=== PATIENT | male | born 1960 | race Caucasian/White ===

== ENCOUNTER 2016-12-08 17:15 | Inpatient (IN) | payer BC ==
[~2016-12-08] VITALS: Ht 182.9 cm; Wt 103.2 kg
--- NOTE | ~2016-12-08 | DS ---
PATIENT'S NAME: JEAN MCNULTY [facility] AGE: 56 Y [address] ROOM: [address] [address] LOCATION: GPCU ADMIT DATE: 12/08/2016 Discharge Summary DISCHARGE DATE: 12/11/2016 FAMILY PHYSICIAN: Tess Bruce APRN ATTENDING PHYSICIAN: Nadine Peralta DISCHARGE DIAGNOSES: 1. Unstable angina with the proximal LAD lesion, being the culprit lesion, which was stented using a drug-eluting stent. 2. History of coronary artery disease status post PCI in the past. 3. Hypertension. 4. Elevated lipids. 5. LVEDP of 20 at the time of intervention. DISCHARGE MEDICATIONS: 1. Amlodipine 5 mg once a day. 2. Ascorbic acid 1 g daily. 3. Aspirin 81 mg a day. 4. Cetirizine 10 mg twice a day. 5. Docusate sodium (famotidine) 20 mg twice a day. 6. Lasix 40 mg every morning. 7. Losartan 50 mg twice a day. 8. Reglan 5 mg before meals and at bedtime. 9. Metoprolol 25 mg twice a day. 10. Omeprazole 20 mg every day. 11. Tamsulosin 0.4 mg every day at bedtime. 12. Brilinta 90 mg b.i.d., for 12 months, the patient has been advised not to stop the Brilinta and aspirin. 13. Tylenol p.r.n. 14. Ambien 10 mg at bedtime. 15. Rosuvastatin 40 mg once a day. COURSE IN THE HOSPITAL: The patient was seen in the office by Meche Easton who admitted him to the PCU where he ruled out for IN. The patient then underwent stress test. He had significant angina starting almost 30-45 seconds into the treadmill and why it was limiting in nature, he did not get his maximum predicted heart rate to 85%. His perfusion images did not reveal any abnormalities, but because of severe chest pain, he was taken to the poultry hatchery laborer. He had about 70% lesion with some mild haziness. An IFR revealed that to be with a significant lesion and so this lesion was stented. He had other mild abnormalities in the arteries, but nothing severe. His echocardiogram revealed normal ejection fraction. Because of a history of fatigue, I did do a nocturnal trend oximetry which was negative for any significant hypoxia. The patient is being discharged home to be followed up by Dr. Brody who is PATIENT'S NAME: JEAN MCNULTY [facility] AGE: 56 Y [address] ROOM: G6[address] [place], [place] [address] LOCATION: GPCU ADMIT DATE: 12/08/2016 Discharge Summary DISCHARGE DATE: 12/11/2016 FAMILY PHYSICIAN: Tess Bruce APRN ATTENDING PHYSICIAN: Nadine Peralta his usual museum security chief. I was covering him during the time he was out of town for a week or so. I did discuss with him his diet and his exercise program and weight loss. Emphasized being on baby aspirin and Brilinta, which have discussed him and make sure that he understood that he cannot suddenly stop those and he should be on those two medications for at least a whole year. I did discuss with him go on switching him from his current statin to rosuvastatin based on the guidelines as well. Dr. Brody in [place]. Again, I appreciate this opportunity to participate in the care of Mr. Mcnulty. MD ANTONIO BOB/patricia /[id number] d: 12/17/[id number] t: 12/23/16 1453, DISCHARGE SUMMARY
--- NOTE | ~2016-12-08 | ECHO ---
Transthoracic Echocardiography Report (TTE) Demographics Patient Name JEAN FISCHER Date of Study 12/09/2016 Patient Number [id number] Visit Number [id number] Date of 1960 Room Number G6302 Gender Male Number Age 56 year(s) Referring Janismichael Pulido Valencia Client Relationship Consultant Gustavo RVT, RDCS Physician ARUNA [place] Physician Interpreting Kathryn Mccoy MD Procurement Services Manager Physician Supervising Ordering Kathryn Mccoy MD, MD/MLP Physician Nurse Stress Business Analysis Specialist Conclusions Contractility Score Summary Normal Left Ventricular contractility was noted. Summary The estimated left ventricular ejection fraction is 60-65% with normal WM and internal dimension.Moderate concentric left ventricular hypertrophy. Trivial MR and TR. Procedure Type of Study TTE procedure:2D Echocardiogram, M-Mode, Doppler , Color Doppler. Procedure Date Date: 12/09/2016 Start: 09:19 AM Study Location: Imaging Center Technical Quality: Adequate visualization Indications:Chest pain. Appropriate Use Criteria: 9 Patient Status: Routine HR: 63 bpm BP: 141/90 mmHg Allergies - Other:(Nitrostrip). M-Mode/2D Measurements LV Diastolic Dimension: 4.38 cm LV Systolic Dimension: 3.02 cm LV Septum Diastolic: 1.67 cm LV PW Diastolic: 1.41 cm AO Root Dimension: 2.8 cm Cardiac Output: 5.81 l/min AV Cusp Separation: 1.3 cm RV Diastolic Dimension: 2.97 cm LA volume: 31 ml LVOT: 2.3 cm RV Base: 2.5 cm LVOT VTI: 22.2 cm RV Mid: 2.29 cm LV Stroke volume: 92.19 ml TAPSE: 2.38 cm TDI-S': 13.4 cm/s Doppler Measurements AV Peak Velocity: 1.14 m/s MV Peak E-Wave: 0.88 m/s AV Peak Gradient: 5.2 mmHg MV Peak A-Wave: 0.71 m/s AV Mean Gradient: 3 mmHg MV E/A Ratio: 1.24 LVOT Peak Velocity: 0.86 m/s MV P1/2t: 64 msec TR Gradient:4.24 mmHg PV Peak Velocity: 0.99 m/s Estimated RAP:3 mmHg PV Peak Gradient: 3.94 mmHg Estimated RVSP: 7 mmHg Estimated PASP: 7.24 mmHg E' Septal Velocity: 0.08 m/s A' Septal Velocity: 0.1 m/s E' Lateral Velocity: 0.1 m/s A' Lateral Velocity: 0.1 m/s Findings Left Ventricle Moderate concentric left ventricular hypertrophy with normal EF,WM and internal dimension. Right Ventricle Normal right ventricle structure and function. Left Atrium Normal left atrial size. Right Atrium Normal right atrial size. Mitral Valve Trivial mitral regurgitation by color Doppler. Aortic Valve Normal aortic valve structure and function. Tricuspid Valve Trivial tricuspid regurgitation by color Doppler. Pulmonic Valve Mild pulmonic valve regurgitation by color Doppler. Pericardial Effusion No evidence of pericardial effusion. Pleural Effusion No evidence of pleural effusion. Contractility Score LV regional wall motion:(0-Non visualized 1-Normal 2-Hypokinesis 3-Akinesis 4-Dyskinesis 5-Aneurysm) Signature dtt: Nadine Peralta dtd: 12/09/16 0919 Physician Self Edit
--- NOTE | ~2016-12-08 | CATH ---
Cardiac Diagnostic + PCI Report Demographics Patient Name AMADO Plascencia Gender Male Date of 1960 Age 56 year(s) Patient Number [id number] Date of Study 12/10/2016 Visit Number [id number] Room Number G6[address] [place] [id number] Ht 182.88 cm Wt 104.33 kg Referring Janis Tess Valencia VALDOVINOS Primary Physician Physician Performing Kathryn Secondary Physician Physician Nadine ARMAS Diagnostic Kathryn Assisting Physician Physician Nadine ARMAS Interventional Kathryn Physician Learn To Swim Instructor Physician Nadine ARMAS Findings and Conclusions Diagnostic Findings and Conclusion iFR LAD prox - 0.74. iFR RCA prox - 1.0 LVEDP 15. Diagnostic Recommendations PCI LAD. Interventional Findings and Conclusion PCI Prox LAD 60% - 0% small haziness - 0%. GLADIS 3 flow. Interventional Recommendations Nocturnal trendox. ? Aldactone. Procedure Description The patient was brought to the diagnostic cardiac catheterization-EP laboratory in the fasting, non-sedated state. Informed consent was obtained in the written and verbal form after the risks and benefits were explained. The patient had no further questions and agreed to proceed. The planned puncture-incision site(s) were shaved and prepped with ChloraPrep and draped in the usual sterile manner. Conscious sedation, supplemental oxygen, and pain control medications were delivered by a registered nurse under physician guidance. Surface ECG rhythm, blood pressure measurement, and pulse oximetry were monitored throughout the procedure. Arterial access. The access site was infiltrated with lidocaine. The vessel was entered with the Seldinger technique. A sheath was advanced into the vessel and used for catheter placement. Selective left coronary angiography. A catheter was advanced into the left coronary vessel ostium under Fluoroscopic guidance. Contrast was injected by hand. Images were obtained in multiple projections. Selective right coronary angiography. A catheter was advanced into the right coronary vessel ostium under fluoroscopic guidance. Contrast was injected by hand. Images were obtained in multiple projections. Left heart catheterization. A catheter was advanced across the aortic valve to the left ventricle under fluoroscopic guidance. Resting hemodynamics were obtained. iFR measurement was performed on prox LAD. The vessel was entered with a guiding catheter. The iFR wire was normalized and then advanced across the lesion. Measurements were taken. iFR measurement was performed on RCA. The vessel was entered with a guiding catheter. The iFR wire was normalized and then advanced across the lesion. Measurements were taken. Stent Placement: A guiding catheter was used to intubate the vessel. A 0.14 wire was used to cross the lesion. A Drug Eluting Stent was placed. Post placement angiograms were performed. Arterial artery hemostasis was achieved. The patient was transferred to a regular nursing floor via cart accompanied by a nurse. The patient left the laboratory in stable condition. Diagnostic Cath Status: Urgent Procedure Procedure Type Diagnostic procedure:Angiography:, Coronary Angios w/[facility] PCI procedure:Drug Eluting Coronary Stent:, LAD, Additional Imaging:, FFR/iFR:, Initial Vessel, Add'l Vessel Indications: Abnormal ECG and Abnormal Stress Test. The procedure was explained in detail to the patient. Risks, complications and alternative treatments were reviewed. Written consent was obtained. Medications Reviewed with Patient prior to Procedure. Angiographic Findings Dominance: Right Cardiac Arteries and Lesion Findings LMCA: Minor Luminal Irregularities. LAD: Stents patent. Luminal irregularities in D1 and D2. Lesion on Prox LAD: Proximal subsection.60% stenosis 12 mm length reduced to 0%. Pre procedure GLADIS III flow was noted. Post Procedure GLADIS III flow was present. The guidewire cross was successful.The lesion was diagnosed as a moderate risk lesion.Culprit lesion. FFR + + + + !FFR !Stage/Medication !Dosage ! + + + + !0.74 ! ! ! + + + + Treatment results:Interventional treatment was successful. Comments:Haziness. Devices used - Verrata Pressure Wire. Number of passes: 1. - Promus Premier 3.0 x 12 Stent. 1 inflation(s) to a max pressure of: 17 jeevan. Lesion on Mid LAD: 30% stenosis . The lesion was previously treated on 07/01/2007 with the following techniques: drug eluting stent. This is in-stentrestenosis. LCx: Mild diffuse disease. OM luminal irregularities. RCA: Stents patent. PLB okay. Lesion on Prox RCA: 40% stenosis .The lesion showed with smooth contour. Lesion on 1st RPL: Ostial.25% stenosis . Lesion on R PDA: Ostial.70% stenosis . Ramus: Minor Luminal Irregularities. Coronary Tree Procedure Data Procedure Date Date: 12/10/2016Start: 03:17 PMEnd: 04:27 PM Entry Locations - Retrograde Percutaneous access was performed through the Right Femoral artery (Primary location). A 7 Fr sheath was inserted. Hemostasis was successfully obtained using Perclose ProGlide (Jansen). Closure Comments: Deployed by RT. Radha. Procedure Medications Order and Administration + + + + + !Time !Medication !Dosage !Route ! + + + + + !12/10/2016 03:09 !Fentanyl !50 mcg !I.V. ! !PM ! ! ! ! + + + + + !12/10/2016 03:13 !Versed !2 mg !I.V. ! !PM ! ! ! ! + + + + + !12/10/2016 03:20 !Versed !1 mg !I.V. ! !PM ! ! ! ! + + + + + !12/10/2016 03:44 !Heparin (ACC_3) !5000 units !I.V. ! !PM ! ! ! ! + + + + + !12/10/2016 03:50 !Integrilin (ACC_7) !18 mg !I.V. bolus ! !PM ! ! ! ! + + + + + !12/10/2016 03:50 !Versed !1 mg !I.V. ! !PM ! ! ! ! + + + + + !12/10/2016 03:55 !Heparin (ACC_3) !1000 units !I.V. ! !PM ! ! ! ! + + + + + !12/10/2016 04:01 !Integrilin (ACC_7) !18 mg !I.V. bolus ! !PM ! ! ! ! + + + + + 12/10/2016 04:07 !Fentanyl !50 mcg !I.V. ! !PM ! ! ! ! + + + + + 12/10/2016 04:21 !Brilinta (Ticagrelor) !180 mg !P.O. ! !PM !(ACC_20) ! ! ! + + + + 12/10/2016 04:22 !Heparin (ACC_3) ! !I.V. ! !PM ! ! ! ! + + + + + !12/10/2016 04:25 !Integrilin (ACC_7) !2 mcg/kg/min!I.V. drip ! !PM ! ! ! ! + + + + + Devices Used - A6 Fr. BS JR 4 Diag. Catheterwas used for:Right coronary angiography. - A6 Fr. BS JL 4 Diag. Catheterwas used for:Left coronary angiography. - A6 Fr. XB 3.5 Guide Catheterwas used for:LAD Intervention. - A6 Fr. JR4 Guide Catheterwas used for:RCA Intervention. Contrast Material - Isovue 129112 ml Fluoroscopy Time: Diagnostic: 13:00 minutes. Total: 13:00 minutes. Fluoroscopy Dose: Diagnostic: 3075 mGy. Total: 3075 mGy. Medical History Performed Procedures and Imaging Results - Standard exercise stress testwas performed. Results were: Positive. Risk/Extent of ischemia was: High risk. Allergies - Other:(Nitrostrip). Risk Factors The patient risk factors include:prior PCI on 08/26/2012;obesity, physical activity, treated hypertension, chronic lung disease, last creatinine: 0.9 mg/dl, creatinine clearance: 138.46 ml/min, dyslipidemia, former tobacco use and prior HI . Admission Data Admission Date: 12/08/2016 Admission Time: 05:29 PM Insurance Payors: Private health insurance. Admission Medications + +------+------+ + + + + !Medication !Dosage!Times !Last !Last !Administered !Comments ! ! ! !Per !Delivery !Delivery ! ! ! ! ! !Day !Date !Time ! ! ! + +------+------+ + + + + !ARB (any) ! ! ! ! !Yes ! ! + +------+------+ + + + + !Beta ! ! ! ! !Yes ! ! !John ! ! ! ! ! ! ! !(any) ! ! ! ! ! ! ! + +------+------+ + + + + !Statin ! ! ! ! !Yes ! ! !(any) ! ! ! ! ! ! ! + +------+------+ + + + + !Aspirin ! ! ! ! !Yes ! ! !(any) ! ! ! ! ! ! ! + +------+------+ + + + + Clinical Evaluation Leading to Procedure - The patient's CAD presentation was assessed as: Unstable angina. - The patient's anginal syndrome during the past two weeks was assessed as: Class IV according to the [place] Cardiovascular Society Classification System (CCS). Anti-anginal medications were prescribed during the past two weeks. The medications are: Beta Blockers and Ca channel Blockers. Hemodynamics Condition: Rest O2 Consumption: Estimated: 269.79Heart Rate: 72 bpm Pressures (mmHg) +-----+ + !Site !Pressure ! +-----+ + !LV !138/9 ,18 ! +-----+ + !LV !139/3 ,13 ! +-----+ + !AO !134/83 (107) ! +-----+ + !LV !136/7 ,14 ! +-----+ + !AO !131/81 (105) ! +-----+ + Valve Gradients and Areas + +---------+---------+---------+ +---------+ + !Valve !Peak !Mean !Area !Index !Flow !Source ! + +---------+---------+---------+ +---------+ + !Aortic !0 !0 ! ! ! ! ! + +---------+---------+---------+ +---------+ + !Aortic !0 !0 ! ! ! ! ! + +---------+---------+---------+ +---------+ + Shunts Oxygen Values O2 Capacity 184.96 O2 Consumption 269.79 Discharge Data Discharge Date: 12/11/2016 Hospital Status: Inpatient Signatures dtt: Nadine Peralta dtd: 12/10/16 1517 Physician Self Edit
--- NOTE | ~2016-12-08 | PUL ---
PATIENT'S NAME: JEAN FISCHER [facility] AGE: 56 Y [address] ROOM: [address] [address] LOCATION: GPCU ADMIT DATE: 12/08/2016 Pulmonary DISCHARGE DATE: 12/11/2016 FAMILY PHYSICIAN: Tess Bruce APRN ATTENDING PHYSICIAN: Nadine Peralta NAME OF PROCEDURE: Overnight Pulse Oximetry DATE OF PROCEDURE: December 10 to December 11, 2016 REASON FOR EXAM: Nocturnal hypoxemia RESULTS: The test was performed on room air. The recording time was 8 hours, 25 minutes, and 12 seconds, with a total valid sampling time of 8 hours, 12 minutes, and 4 seconds. The highest pulse was 113, lowest pulse was 52, with a mean pulse of 63. The highest SpO2 was 98%, lowest SpO2 was 88%, with a mean SpO2 of 93.7%. The patient spent 12 seconds with SpO2 less than 89%. The desaturation event index was normal at 0.6. PHYSICIAN INTERPRETATION: The patient does not have evidence of significant nocturnal hypoxia and would not qualify for supplemental oxygen as per Medicare criteria. MD DONALD JUNIOR/morenita /[id number] dtt: 12/12/16 1056 , [place]WTON TRAMMELL dtd: 12/11/16 1524
--- NOTE | ~2016-12-08 | ESTC ---
Cardiac Perfusion Imaging Demographics Patient Name AMADO Plascencia Gender Male Patient Number [id number] Race Visit Number [id number] [place] [id number] Room Number G6302 Accession Number [id number] Height 72 inches Date of 1960 Weight 230 pounds Interpreting Kathryn Mccoy Date of study 12/09/2016 Physician Supervising /VALERIE MCDONALD Technologist Ordering Physician Stress Viktoria Ray vacuum technician [facility] Stress ECG Reading [facility] Nurse Colleen Birmingham RN Physician Procedure Procedure Type: Nuclear Stress Test:Exercise, Cardiolite Stress Test Procedure Start time: 12/09/2016 08:01 Indications: Chest pain. Risk Factors The patient risk factors include:prior PCI on 02/10/2010;obesity, physical activity and treated hypertension. Conclusions Summary No TID. Normal perfusion images. Normal LVEF and WM. Poor exercise tolerance with limiting angina. Stress Protocols Resting ECG RSR Pre-stress physical exam: Un changed. Predicted HR: 166 bpm ECG Findings [address] depression involving leads 2,3,avf and V5. Arrhythmias No rhythm abnormality. Symptoms Onset of chest tightness at 30 seconds and became limiting. Stress Interpretation Duration:4.12 mins. METs:5.5 DP:20 K. Achieved :76% MPHR. Limiting angina. EKG:Positive for ischemia. No arrythmias. DTS: -8.9 (Moderate risk) Imaging Results High risk findings Summed scores - Summed stress score: 7 - Summed rest score: 5 - Summed difference score: 2 Stress ejection Ejection fraction:71 % EDV :129 ml ESV :37 ml Stroke volume :92 ml LV mass :150 gr LV size:Normal Normal LV function Imaging Protocols Rest Stress Isotope:Tc99m Sestamibi IV Isotope: Tc99m Sestamibi IV Isotope dose:14.35 mCi Isotope dose:40.7 mCi Date:12/09/2016 07:35 Date:12/09/2016 09:46 Technique: SPECT Technique: Gated Supine SPECT Supine Scan Time:45-60 minutes post Scan Time:45-60 minutes post injection injection Medical History Admission Data Admission date: 12/08/2016 Admission Time: 17:29 Hospital Status: Inpatient. Signatures dtt: Nadine Peralta dtvanessa: 12/09/16 0801 Physician Self Edit
[~2016-12-08 17:15] MED LIST: AMBIEN10 MG PO; ASPIRIN LO-DOSE81 MG PO; COZAAR50 MG PO; FLOMAX0.4 MG PO; LOPRESSOR25 MG PO; NORVASC5 MG PO; PRILOSEC20 MG PO; REGLAN5 MG PO; ZOCOR40 MG PO
[2016-12-08 17:56] LABS: BASOPHIL % 0.4 %; EOSINOPHIL # 0.4 K/uL (0.0-0.5); EOSINOPHIL % 6.5 %; HEMATOCRIT 41.4 % (37.0-53.0); HEMOGLOBIN 13.6 g/dL (12.0-17.0); IMMATURE GRANULOCYTE % 0.4 %; LYMPHOCYTE # 2.2 K/uL (0.8-4.0); LYMPHOCYTE % 32.1 %; MCH 28.5 pg (27.0-34.0); MCHC 32.9 gm/dL (32.0-36.5); MCV 86.6 fl (83.0-98.0); MONOCYTE # 0.6 K/uL (0.0-1.0); MONOCYTE % 9.2 %; MPV 8.7 fl (9.4-12.4); NEUTROPHIL # (ANC) 3.5 K/uL (1.4-9.0); NEUTROPHIL % 51.4 %; NRBC % 0 /100WBC (0-0.00); PLATELET COUNT 233 K/uL (150-450); RBC 4.78 M/uL (4.00-6.00); RDW-CV 12.9 % (11.9-14.6); WBC 6.8 K/uL (4.0-11.0)
[2016-12-08 18:04] LABS: INR - (THERAPEUTIC) 0.94 (0.92-1.07); PROTIME 9.9 SECONDS (9.8-11.4)
[2016-12-08] MEDS ORDERED: FUROSEMIDE40 MG PO (19:32)
[2016-12-08] MEDS ORDERED: VITAMIN C1000 MG PO (19:32)
[2016-12-08] MEDS ORDERED: PRILOSEC20 MG PO (19:32)
[2016-12-08 22:11] LABS: BILIRUBIN URINE NEGATIVE (NEGATIVE); BLOOD URINE NEGATIVE /UL (NEGATIVE); GLUCOSE URINE NEGATIVE (NEGATIVE); KETONE URINE NEGATIVE (NEGATIVE); LEUKOCYTES URINE NEGATIVE /UL (NEGATIVE); NITRITE URINE NEGATIVE (NEGATIVE); PROTEIN URINE NEGATIVE (NEGATIVE); SPEC GRAVITY URINE 1.025 (1.003-1.035); UROBILINOGEN URINE NORMAL (NORMAL)
[2016-12-08 22:13] LABS: COLOR URINE YELLOW (YELLOW); TURBIDITY URINE CLEAR (CLEAR)
[2016-12-08 23:22] LABS: CPK 92 IU/L (35-332)
[2016-12-09 04:52] LABS: CPK 87 IU/L (35-332)
[2016-12-10 20:38] LABS: BASOPHIL % 0.4 %; EOSINOPHIL # 0.3 K/uL (0.0-0.5); EOSINOPHIL % 3.9 %; HEMATOCRIT 39.8 % (37.0-53.0); HEMOGLOBIN 12.9 g/dL (12.0-17.0); IMMATURE GRANULOCYTE % 0.3 %; LYMPHOCYTE # 1.6 K/uL (0.8-4.0); LYMPHOCYTE % 22.4 %; MCH 27.9 pg (27.0-34.0); MCHC 32.4 gm/dL (32.0-36.5); MONOCYTE # 0.5 K/uL (0.0-1.0); MONOCYTE % 6.4 %; MPV 8.8 fl (9.4-12.4); NEUTROPHIL # (ANC) 4.8 K/uL (1.4-9.0); NEUTROPHIL % 66.6 %; NRBC % 0 /100WBC (0-0.00); PLATELET COUNT 224 K/uL (150-450); RBC 4.63 M/uL (4.00-6.00); RDW-CV 13.2 % (11.9-14.6); WBC 7.1 K/uL (4.0-11.0)
[2016-12-11 05:20] LABS: BASOPHIL % 0.3 %; EOSINOPHIL # 0.6 K/uL (0.0-0.5); EOSINOPHIL % 8.3 %; HEMATOCRIT 39.2 % (37.0-53.0); HEMOGLOBIN 12.7 g/dL (12.0-17.0); IMMATURE GRANULOCYTE % 0.4 %; LYMPHOCYTE # 1.5 K/uL (0.8-4.0); LYMPHOCYTE % 22.5 %; MCH 28.2 pg (27.0-34.0); MCHC 32.4 gm/dL (32.0-36.5); MCV 86.9 fl (83.0-98.0); MONOCYTE # 0.6 K/uL (0.0-1.0); MONOCYTE % 8.3 %; MPV 9.1 fl (9.4-12.4); NEUTROPHIL % 60.2 %; NRBC % 0.3 /100WBC (0-0.00); PLATELET COUNT 244 K/uL (150-450); RBC 4.51 M/uL (4.00-6.00); RDW-CV 13.3 % (11.9-14.6); WBC 6.7 K/uL (4.0-11.0)
[2016-12-11 05:40] LABS: ALBUMIN 3.2 gm/dL (3.5-5.0); ALK PHOS 58 IU/L (33-138); ALT 52 IU/L (12-78); BLOOD UREA NITROGEN 15 mg/dL (6-24); CALCIUM 8.2 mg/dL (8.5-10.5); CHLORIDE 107 mMol/L (96-110); CO2 26 mMol/L (22-32); ESTIMATED GFR (MDRD EQUATION) > 60; SODIUM 141 mMol/L (135-145); TOTAL BILIRUBIN 0.4 mg/dL (0.0-1.5); TOTAL PROTEIN 6.3 g/dL (6.0-8.4)
[2016-12-11 05:41] LABS: ANION GAP 11.8 (10.0-19.0); AST 43 IU/L (10-40)
[2016-12-11 05:42] LABS: POTASSIUM 3.8 mMol/L (3.7-5.1)
[2016-12-11] MEDS ORDERED: ZYRTEC10 MG PO (09:51)
[2016-12-11] MEDS ORDERED: BRILINTA90 MG PO (09:56)
[2016-12-11] MEDS ORDERED: TYLENOL325 MG PO (09:57)
[2016-12-11] MEDS ORDERED: CRESTOR40 MG PO (10:00)
== END 2016-12-11 10:30 | disposition disaster alternative care site (69) | DRG 247 ==
LOC: GPCU 17:29
PROVIDERS: ADMIT Internal Medicine Interventional Cardiology
PROC: 4A023N7 Measurement of Cardiac Sampling and Pressure, Left Heart, Percutaneous Approach (ICD-10-PCS; principal; 2016-12-10)
PROC: B2111ZZ Fluoroscopy of Multiple Coronary Arteries using Low Osmolar Contrast (ICD-10-PCS; principal; 2016-12-10)
PROC: 3E073PZ Introduction of Platelet Inhibitor into Coronary Artery, Percutaneous Approach (ICD-10-PCS; principal; 2016-12-10)
PROC: 027034Z Dilation of Coronary Artery, One Artery with Drug-eluting Intraluminal Device, Percutaneous Approach (ICD-10-PCS; principal; 2016-12-10)
DX: I25.110 Atherosclerotic heart disease of native coronary artery with unstable angina pectoris (principal); I10 Essential (primary) hypertension; I25.84 Coronary atherosclerosis due to calcified coronary lesion; E78.5 Hyperlipidemia, unspecified; K21.9 Gastro-esophageal reflux disease without esophagitis; Z82.49 Family history of ischemic heart disease and other diseases of the circulatory system; Z95.5 Presence of coronary angioplasty implant and graft; Z79.82 Long term (current) use of aspirin
CPT/HCPCS: A9500; C1760; C1769; C1874; C1887; C9600; J1327; J1644; J2250; J3010; J7030